=== PATIENT | female | born 1955 | race Caucasian/White ===

== ENCOUNTER 2016-12-22 10:12 | Inpatient (IN) ==
[2016-12-22] MEDS ORDERED: PERCOCET-5 PO PRN (14:02)
[2016-12-22] MEDS ORDERED: VANCOMYCIN IV PER PHARMACY MISC SCH (14:02)
[2016-12-22 14:29] LABS: MANUAL DIFF NEEDED? NO
[2016-12-22 14:31] LABS: BASO% 0.4 % (0.0-0.8); EOS# 0.02 X1000 (0.0-0.7); EOS% 0.2 % (0.0-10.0); HEMATOCRIT 43.8 % (37.0-47.0); HEMOGLOBIN 15.3 g/dL (12.0-16.0); IMM GRAN# 0.04 X1000 (0.0-0.04); IMM GRAN% 0.3 % (0.0-0.5); LYMPH# 2.55 X1000 (1.2-3.4); LYMPH% 19.8 % (20.5-51.1); MCH 30.7 PG (27-31); MCHC 34.9 g/dL (33-37); MCV 87.8 FL (81-99); MONO# 1.04 X1000 (0.11-0.59); MONO% 8.1 % (1.7-9.3); MPV 10.2 FL (7.4-10.4); NEUT% 71.2 % (42.2-75.2); PLT 350 X1000 (130-400); RBC 4.99 XMIL (4.2-5.4)
[2016-12-22 14:45] LABS: INR 0.94; PROTIME 9.8 Seconds (9.2-11.7)
[2016-12-22] MEDS: SODIUM CHLORIDE 0.9% INJ SCH (14:49)
[2016-12-22] MEDS: LOVENOX SUBQ SCH (14:49)
[2016-12-22] MEDS: PROTONIX IV SCH (14:49)
[2016-12-22] MEDS: NS 1,000 ML IV SCH (14:49)
[2016-12-22 15:00] LABS: HEMOGLOBIN A1C 13.2 % (4.8-6.0)
[2016-12-22 15:15] LABS: AGAP 11; ALBUMIN 3.5 g/dL (3.5-5.0); ALKALINE PHOSPHATASE 107 U/L (32-104); BUN 16 mg/dL (8-22); CALCIUM 9.5 mg/dL (8.8-10.2); CHLORIDE 87 mmol/L (98-107); COSMO 271; GOT 9 U/L (10-30); GPT 10 U/L (10-36); POTASSIUM 4.9 mmol/L (3.5-5.1); SODIUM 123 mmol/L (136-145); TCO2 25 mmol/L (25-35); TOTAL BILIRUBIN 0.45 mg/dL (0.20-1.00); TOTAL PROTEIN 7.3 g/dL (6.3-8.3)
[2016-12-22] MEDS: HUMALOG SUBQ SCH ×2 (15:30→20:50)
--- NOTE | 2016-12-22 15:54 | EKG Report ---
Test Performed on : 12/22/2016 2:07:03 PM Test Reason : chest pain Blood Pressure : / mmHG Vent. Rate : 083 BPM Atrial Rate : 083 BPM P-R Int : 154 ms QRS Dur : 088 ms QT Int : 378 ms P-R-T Axes : 064 056 045 degrees QTc Int : 444 ms Normal sinus rhythm. Normal ECG When compared with ECG of 07-APR-2009 12:20, No significant change was found Confirmed by Emely NEWSOME, Vinicio Worrell ([id number]) on 12/23/2016 8:19:56 AM
[2016-12-22] MEDS ORDERED: VANCOMYCIN 1,650 MG in NS 250 ML IV ONE (16:00)
--- NOTE | 2016-12-22 16:53 | Diag Imaging Result Document ---
PROCEDURE NAME: CHEST-2 VIEWS - 12/22/2016 PA AND LATERAL RADIOGRAPH OF THE CHEST: COMPARISON: 12/15/2010. FINDINGS: There is a calcified granuloma at the right lung base. There is vague increased opacity at the right lower lung zone. This is only seen on the PA view and probably represents overlying soft tissue attenuation. Mild developing infiltrate is possible. Consider followup radiograph. There is a 2nd calcified granuloma at the periphery of the right upper lung zone that is stable. The left lung appears to be clear. Cardiac silhouette and central vasculature are grossly unremarkable. IMPRESSION: Vague increased opacity at the right lower lung zone that may be artifactual due to overlying soft tissue attenuation. Developing infiltrate is possible. Consider plain radiograph followup.
[2016-12-22] MEDS ORDERED: GLUCOPHAGE PO SCH (17:00)
[2016-12-22] MEDS ORDERED: DIPRIVAN 1% ONE (17:50)
[2016-12-22] MEDS: DIABETA PO SCH (18:41)
--- NOTE | 2016-12-22 20:05 | CONSULTATION ---
DATE OF CONSULTATION: 12/22/2016 CHIEF COMPLAINT: Abscess of the right breast. HISTORY: This is a 61-year-old diabetic who for the past [id number] has had an increasing erythematous, tender fluctuant mass in the right breast. It has not spontaneously drained. She is admitted now with glucose intolerance, low-grade fever and leukocytosis. PAST MEDICAL HISTORY: Pertinent for insulin-dependent diabetes. PAST SURGICAL HISTORY: Includes cholecystectomy, removal of duct from the left breast in the past. HOME MEDICATIONS: Not listed yet. ALLERGIES: She has no known drug allergies. FAMILY HISTORY: Noncontributory. REVIEW OF SYSTEMS: As noted above. PHYSICAL EXAMINATION: Vital Signs: Temperature is 99.1 degrees, heart rate 84, respiratory rate 18, blood pressure 143/71. General: She has no cervical adenopathy. Lungs: Bilateral breath sounds. Heart: Regular rate and rhythm. Skin: She has a very large erythematous fluctuant mass in the right breast at 2 o'clock, exquisitely tender. She also has an ulceration on her left hand from a cat scratch. Neurologic: She is awake, alert and oriented. DIAGNOSTICS/LABS: White count is 12,900. ASSESSMENT: Right breast abscess. PLAN: Irrigation and debridement of right breast abscess. We will plan to proceed due to the acuity of it. cc: MD Sumeet Bahena MD
--- NOTE | 2016-12-22 21:19 | HISTORY AND PHYSICAL ---
CHIEF COMPLAINT: Pain and swelling right breast for the last 10 days. Uncontrolled sugar. Noncompliance. Was not seen here for more than 1 year. A1c 10. Upon examination, there is a large right breast abscess above the nipple, mostly in the superior area and fluctuations noted with underlying induration. Last mammography 2013. It is exquisitely tender. Almost dizzy and passing out. As a result, she has been hospitalized for IV antibiotics and incision and drainage. The patient was seen before by Dr. Jarrett. As a result, a hospital admission was warranted. White cell count 12,000. PAST MEDICAL HISTORY: Atypical chest pain. Stress test was negative in 2007. Depression with anxiety. Poorly-controlled diabetes. Hypothyroidism. Sleep apnea. Simple goiter. Spondylosis C-spine. History of Graves disease status post thyroidectomy in 1985. PAST SURGICAL HISTORY: Thyroid surgery. Left breast lumpectomy. Cholecystectomy. MEDICATIONS: Celexa 40 daily, Synthroid 50 daily. Lisinopril 2.5 mg daily. Lovastatin 40 mg daily. Metformin 1000 p.o. b.i.d. Mobic 15 daily. ALLERGIES: Not known. SOCIAL HISTORY: . Disabled. No drugs. No alcohol. No smoking. FAMILY HISTORY: Father of [place] at 60. Mom of colon and rectal cancer at the age of 60. HEALTH MAINTENANCE: Tetanus 2015. Mammography December 2013. DEXA scan December 2013. Pap smear 2008. Colonoscopy 2010. REVIEW OF SYSTEMS: HEENT: Vision problems. No headache. No earache. No sore throat. Neck: No goiter. No lymphadenopathy. No bruit. Status post thyroidectomy. Cardiopulmonary: No chest pain, shortness of breath, PND, orthopnea. GI: No nausea, vomiting, abdominal pain. : History of polyuria. Breasts: Right breast abscess. Extremities: No swelling of feet. No joint pains. No back pain. Neurologic: No obvious focal symptoms or weakness. PHYSICAL EXAMINATION: VITAL SIGNS: Stable. 5 feet 2, 162 pounds. HEENT: Atraumatic, normocephalic. Pupils equal, react to light. TMs are normal. Nose and throat within normal limits. NECK: Supple. No lymphadenopathy. No goiter. CHEST: Bilateral air entry. HEART: Sounds are regular. RIGHT BREAST: Large abscess above the nipple from 2:00 o'clock to 10:00 o' clock area. No lymphadenopathy. ABDOMEN: Belly is soft, nontender. Good bowel sounds. EXTREMITIES: No peripheral edema, cyanosis, clubbing. NEUROLOGIC: No obvious neurological deficits. INVESTIGATIONS: CBC: White cell count 12, hematocrit 43, platelets 350,000. PT/INR is normal. SMA7: Sodium 123, potassium 4.9, glucose 487. A1c 13.2. LFTs were normal. B12 is normal. TSH is normal. Chest x-ray, calcified granulomatosis disease. EKG: Normal sinus, nothing acute. ASSESSMENT AND PLAN: 1. A 61-year-old white female, noncompliant. Uncontrolled diabetes associated with pseudo-hyponatremia with elevated blood sugar complicated by a right breast abscess. Plan is IV vancomycin. 2. Surgical consult with Dr. Jarrett. 3. Uncontrolled diabetes. The patient has been on DiaBeta, metformin. Optimize the treatment and a get C-peptide levels in the morning. 4. Hyponatremia. IV fluids and follow up on sliding scale with insulin coverage. 5. Deep venous thrombosis prophylaxis with Lovenox. 6. Gastrointestinal prophylaxis with IV Protonix. 7. Reconcile home medications and will follow up and discuss with Dr. Jarrett on the telephone. cc: Sumeet Pennington MD MTDD
--- NOTE | 2016-12-22 22:29 | OPERATIVE NOTE ---
PROCEDURE DATE: 12/22/2016 PROCEDURE PERFORMED: Incision and drainage right breast abscess. SURGEON: Chilo Jarrett MD. HOME THEATER INSTALLER: Fatou. PREOPERATIVE DIAGNOSIS: Right breast abscess. POSTOPERATIVE DIAGNOSIS: Right breast abscess. DESCRIPTION OF PROCEDURE: Satisfactory general anesthesia was achieved. An LMA was used. The right breast was prepped and draped in a sterile fashion. We made a radial incision at 2 o'clock at the edge of the areola into the pointing abscess. Significant amount of pus flowed forth. We cultured the wound. We then suctioned out the abscess cavity. We digitally explored it to be sure there were no loculations and after doing so, we then copiously irrigated it. After irrigating and hemostasis was satisfactory, we packed it with a quarter-inch iodoform gallstone and sterile gauze dressing was applied. She tolerated it well, was sent to the recovery room in satisfactory condition. cc: MD Sumeet Bahena MD
[2016-12-23 06:15] LABS: MANUAL DIFF NEEDED? NO
[2016-12-23 06:19] LABS: BASO% 0.3 % (0.0-0.8); EOS# 0.09 X1000 (0.0-0.7); EOS% 0.8 % (0.0-10.0); HEMATOCRIT 41.5 % (37.0-47.0); HEMOGLOBIN 14.1 g/dL (12.0-16.0); IMM GRAN# 0.02 X1000 (0.0-0.04); IMM GRAN% 0.2 % (0.0-0.5); LYMPH# 2.93 X1000 (1.2-3.4); LYMPH% 25.6 % (20.5-51.1); MCH 30.5 PG (27-31); MCV 89.6 FL (81-99); MONO# 0.86 X1000 (0.11-0.59); MONO% 7.5 % (1.7-9.3); MPV 10.3 FL (7.4-10.4); NEUT% 65.6 % (42.2-75.2); PLT 343 X1000 (130-400); RBC 4.63 XMIL (4.2-5.4)
[2016-12-23] MEDS: NS 1,000 ML IV SCH ×2 (06:22→18:57)
[2016-12-23] MEDS: SYNTHROID PO SCH (06:22)
[2016-12-23] MEDS: HUMALOG SUBQ SCH ×4 (06:22→21:09)
[2016-12-23 06:47] LABS: AGAP 13; BUN 16 mg/dL (8-22); CALCIUM 8.9 mg/dL (8.8-10.2); CHLORIDE 99 mmol/L (98-107); COSMO 277; HDL 25 mg/dL (45-65); LDL 116 mg/dL; POTASSIUM 4.3 mmol/L (3.5-5.1); SODIUM 135 mmol/L (136-145); TCO2 23 mmol/L (25-35); TRIGLYCERIDES 215 mg/dL (35-135); VLDL 43 mg/dL
[2016-12-23] MEDS: MEVACOR PO SCH (08:30)
[2016-12-23] MEDS: CELEXA PO SCH (08:31)
[2016-12-23] MEDS: VITAMIN D PO SCH (08:31)
[2016-12-23] MEDS: GLUCOPHAGE PO SCH ×3 (08:31→16:17)
[2016-12-23] MEDS: THERA M PLUS PO SCH (08:32)
[2016-12-23] MEDS: DIABETA PO SCH ×2 (08:32→16:17)
[2016-12-23] MEDS: PRINIVIL PO SCH (08:33)
[2016-12-23] MEDS ORDERED: ZOFRAN ONE (09:38)
[2016-12-23] MEDS ORDERED: LR 1,000 ML ONE (09:38)
[2016-12-23] MEDS ORDERED: EXTENSION SET 32 IN 4522 ONE (09:38)
[2016-12-23] MEDS ORDERED: XYLOCAINE-MPF 2% ONE (09:38)
[2016-12-23] MEDS ORDERED: ROBINUL ONE (09:38)
[2016-12-23] MEDS ORDERED: ANESTHESIA PB SET 88 IN 5742 ONE (09:38)
--- NOTE | 2016-12-23 10:36 | PROGRESS NOTE ---
DATE: 12/23/2016 SUBJECTIVE: Interval history was reviewed for the last 24 hours. The patient was seen by Dr. Jarrett. He did incision and drainage. Operative findings were noted. Cultures are pending. REVIEW OF SYSTEMS: None reported. PHYSICAL EXAMINATION: Vital Signs: Stable, afebrile. HEENT: Within normal limits. Neck: Supple. No lymphadenopathy. Breast: Wound was dressed with iodoform gauze and sterile pack. Abdomen: Belly is soft, nontender. Extremities: No peripheral edema, cyanosis, clubbing. Neurologic: Nonfocal. INVESTIGATIONS: CBC: White cell count 11.46, hematocrit 41, platelets 343,000. SMA-7: Sodium 135, potassium 4.3, blood sugar is 208. A1c 13.2. C-peptide is 5.5. Triglycerides 215, cholesterol 184, HDL 25. B12 and TSH are normal. ASSESSMENT AND PLAN: 1. Right breast abscess, status post incision and drainage. Follow up on microbiology culture. Continue on IV vancomycin. 2. Uncontrolled diabetes due to noncompliance. A1c 13.4. C-peptide is high. Increase the metformin to 850 p.o. b.i.d., along with vitamin B12 tablets and glyburide 2.5 p.o. b.i.d. 3. Deep vein thrombosis and gastrointestinal prophylaxis, respectively. 4. Hypertension, on lisinopril. 5. Hyperlipidemia. We will start on Lipitor 40 mg once daily. Discussed at length with the patient about diabetes and complications. LEVEL OF DOCUMENTATION: Thirty-five minutes. cc: Sumeet Pennington MD
[2016-12-23] MEDS: SODIUM CHLORIDE 0.9% INJ SCH ×2 (13:00→13:03)
[2016-12-23] MEDS: LOVENOX SUBQ SCH (13:03)
[2016-12-23] MEDS: PROTONIX IV SCH (13:03)
[2016-12-23] MEDS: VANCOMYCIN 1,250 MG in NS 250 ML IV SCH (21:08)
[2016-12-24] MEDS: NS 1,000 ML IV SCH ×3 (03:46→20:46)
[2016-12-24] MEDS: SYNTHROID PO SCH (06:12)
[2016-12-24] MEDS: HUMALOG SUBQ SCH ×4 (06:12→20:46)
[2016-12-24] MEDS: VITAMIN D PO SCH ×2 (07:51→12:24)
[2016-12-24] MEDS: PRINIVIL PO SCH ×2 (07:51→12:25)
[2016-12-24] MEDS: THERA M PLUS PO SCH ×2 (07:52→12:24)
[2016-12-24] MEDS: GLUCOPHAGE PO SCH ×3 (07:52→16:40)
[2016-12-24] MEDS: CELEXA PO SCH ×2 (07:52→12:24)
[2016-12-24] MEDS: MEVACOR PO SCH ×2 (07:53→12:24)
[2016-12-24] MEDS: DIABETA PO SCH ×2 (07:53→16:40)
--- NOTE | 2016-12-24 12:05 | PROGRESS NOTE ---
DATE: 12/24/2016 SUBJECTIVE: Discussed with Dr. Jarrett. Drained quite a bit of pus in the right breast. Wound was dressed yesterday. The patient is doing very well. Blood sugars running high. cultures showed gram-positive cocci. REVIEW OF SYSTEMS: None reported. OBJECTIVE: Vital Signs: On physical examination, afebrile. Hemodynamics are stable. Oxygen 98% on room air. HEENT: Exam within normal limits. Chest: Clear. Some minimal oozing coming out from the dressing. Heart: Sounds are regular. Abdomen: Belly is soft, nontender. Good bowel sounds. Extremities: No peripheral edema, cyanosis, clubbing. Nonfocal exam. ROUTINE CULTURES: Gram-positive cocci. ASSESSMENT AND PLAN: 1. Right breast abscess status post incision and drainage, consistent with gram- positive cocci. Continue on intravenous vancomycin. 2. Uncontrolled diabetes. Explained the blood glucose monitoring. Continue on glimepiride and metformin. 3. Hyponatremia, improving after intravenous fluids. 4. Hyperlipidemia. Mevacor 40 mg daily. LEVEL OF DOCUMENTATION: 25 minutes. Will continue present medical therapy. cc: Sumeet Pennington MD MTD
[2016-12-24] MEDS: SODIUM CHLORIDE 0.9% INJ SCH (14:24)
[2016-12-24] MEDS: PROTONIX IV SCH (14:24)
[2016-12-24] MEDS: LOVENOX SUBQ SCH (14:25)
[2016-12-24] MEDS: VANCOMYCIN 1,250 MG in NS 250 ML IV SCH (20:46)
[2016-12-25] MEDS: SYNTHROID PO SCH (06:56)
[2016-12-25] MEDS: HUMALOG SUBQ SCH ×4 (06:56→21:36)
[2016-12-25] MEDS: VITAMIN D PO SCH (08:19)
[2016-12-25] MEDS: THERA M PLUS PO SCH (08:19)
[2016-12-25] MEDS: GLUCOPHAGE PO SCH ×3 (08:19→17:08)
[2016-12-25] MEDS: MEVACOR PO SCH (08:20)
[2016-12-25] MEDS: PRINIVIL PO SCH (08:20)
[2016-12-25] MEDS: DIABETA PO SCH ×2 (08:21→17:08)
[2016-12-25] MEDS: CELEXA PO SCH (09:00)
[2016-12-25] MEDS: NS 1,000 ML IV SCH ×2 (12:18→18:28)
[2016-12-25] MEDS: SODIUM CHLORIDE 0.9% INJ SCH ×2 (12:31→13:34)
[2016-12-25] MEDS: LOVENOX SUBQ SCH (13:33)
[2016-12-25] MEDS: PROTONIX IV SCH (13:34)
--- NOTE | 2016-12-25 13:42 | PROGRESS NOTE ---
DATE: 12/25/2016 SUBJECTIVE: The patient does not offer any complaints. Right breast wound is dressed, still quite a bit of drainage with a large induration noted. Blood sugars are running around 200. REVIEW OF SYSTEMS: None reported. PHYSICAL EXAMINATION: Vital signs: Stable. HEENT: Within normal limits. Neck: Supple, no lymphadenopathy. Chest: Clear. Heart: Heart sounds are regular. Breasts: Right breast was dressed. Abdomen: Belly is soft, nontender. Extremities: No peripheral edema, cyanosis or clubbing. LABORATORY DATA: CBC: White cell count 11. hematocrit 42, platelets 343. SMA-7: Sodium 135, potassium 4.3, sugar is around 200. Microbiology cultures: Staphylococcus lugdunensis sensitive to Bactrim and vancomycin. ASSESSMENT AND PLAN: 1. Uncontrolled diabetes. Continue on metformin t.i.d. and glyburide, will increase to 5 mg p.o. b.i.d. Follow up on sliding scale. 2. Right breast abscess due to Staphylococcus. Continue IV Levaquin. Will change to the Bactrim when she goes home. 3. Education was given per her diabetic classes and home blood glucose monitoring. Continue present medical therapy. LEVEL OF DOCUMENTATION: 35 minutes. cc: Sumeet Pennington MD
[2016-12-25] MEDS: VANCOMYCIN 1,250 MG in NS 250 ML IV SCH (21:05)
[2016-12-26] MEDS: HUMALOG SUBQ SCH ×4 (06:45→21:25)
[2016-12-26] MEDS: NS 1,000 ML IV SCH ×3 (06:47→21:09)
[2016-12-26] MEDS: SYNTHROID PO SCH (06:48)
[2016-12-26] MEDS: VITAMIN D PO SCH (08:39)
[2016-12-26] MEDS: PRINIVIL PO SCH (08:39)
[2016-12-26] MEDS: CELEXA PO SCH (08:39)
[2016-12-26] MEDS: THERA M PLUS PO SCH (08:41)
[2016-12-26] MEDS: MEVACOR PO SCH (08:41)
[2016-12-26] MEDS: DIABETA PO SCH ×2 (08:41→16:52)
[2016-12-26] MEDS: GLUCOPHAGE PO SCH ×3 (08:41→17:32)
--- NOTE | 2016-12-26 09:17 | PROGRESS NOTE ---
DATE: 12/25/2016 SUBJECTIVE: The patient complains of some pain in her right breast but says it is improving. OBJECTIVE: Vital Signs: She is afebrile. Vital signs are stable. General: She is alert and oriented x4. No acute distress. Right Breast Examination: Shows continued induration, erythema, and some seropurulent drainage from her wound in the right medial breast. Laboratory: None today. ASSESSMENT AND PLAN: A 61-year-old female, status post incision and drainage of right breast abscess. She would benefit from continued intravenous antibiotics and wound care. cc: MD Sumeet Bray MD
--- NOTE | 2016-12-26 10:23 | PROGRESS NOTE ---
DATE: 12/26/2016 SUBJECTIVE: The patient seems like she is feeling better. OBJECTIVE: Vital Signs: She is afebrile. Vital signs are stable. Breast Examination: Her right breast has some induration, erythema, and seropurulent drainage but no fluctuance or undrained pockets of fluid. Laboratory Data: There are no new labs today. ASSESSMENT AND PLAN: A 61-year-old female with right breast abscess, status post incision and drainage. She will continue on intravenous antibiotics until the inflammation improves. cc: MD Sumeet Bray MD
[2016-12-26] MEDS: SODIUM CHLORIDE 0.9% INJ SCH (14:20)
[2016-12-26] MEDS: PROTONIX IV SCH (14:20)
[2016-12-26] MEDS: LOVENOX SUBQ SCH (14:21)
--- NOTE | 2016-12-26 15:11 | PROGRESS NOTE ---
DATE: 12/26/2016 SUBJECTIVE: Still draining in the right breast. A lot of induration. Patient wants to go home. Blood sugars are running 200. Patient is noncompliant. REVIEW OF SYSTEMS: None reported. PHYSICAL EXAMINATION: Vital Signs: Stable. HEENT: Within normal limits. Neck: Supple. Chest: Clear to auscultation. Heart: Sounds are regular. Blood sugar is slowly coming down. INVESTIGATIONS: Blood culture: Staph infection. ASSESSMENT AND PLAN: Right breast abscess. Continue local wound care, intravenous vancomycin. We will be change to Bactrim. Diabetes, continue on metformin and glyburide 5 mg p.o. b.i.d. Discussed with the family plan of care. She will be discharged in the morning. LEVEL OF DOCUMENTATION: 15 minutes. cc: Sumeet Pennington MD
[2016-12-26] MEDS: VANCOMYCIN 1,500 MG in NS 250 ML IV SCH (21:06)
[2016-12-27] MEDS: SYNTHROID PO SCH (06:09)
[2016-12-27] MEDS: HUMALOG SUBQ SCH ×4 (06:09→20:54)
--- NOTE | 2016-12-27 08:48 | PROGRESS NOTE ---
DATE: 12/27/2016 SUBJECTIVE: The patient wants to go home. OBJECTIVE: Right breast with minimal redness. Vital signs are stable. HEENT: Within normal limits. Neck: Supple. Right breast: A lot of induration and a knot just below the nipple starting at 9 o'clock to 1 o'clock. Nontender. No lymphadenopathy. The rest of the exam is benign. REVIEW OF SYSTEMS: None reported. DIAGNOSTIC DATA: None. ASSESSMENT AND PLAN: 1. Right breast abscess, status post incision and drainage. Continues to have a large indurated know, etiology to be determined. Rule out mass. We will get mammography. Last mammography was 3 years ago. Based on the mammogram, further recommendations will follow. 2. Type 2 diabetes. On metformin 850 t.i.d. along with glyburide. 3. Continue on IV vancomycin and will follow up. cc: Sumeet Pennington MD
[2016-12-27] MEDS: GLUCOPHAGE PO SCH ×3 (08:54→17:19)
[2016-12-27] MEDS: PRINIVIL PO SCH (08:54)
[2016-12-27] MEDS: CELEXA PO SCH (08:55)
[2016-12-27] MEDS: DIABETA PO SCH ×2 (08:55→17:19)
[2016-12-27] MEDS: MEVACOR PO SCH (08:55)
[2016-12-27] MEDS: THERA M PLUS PO SCH (08:55)
[2016-12-27] MEDS: VITAMIN D PO SCH (08:55)
[2016-12-27] MEDS: LOVENOX SUBQ SCH (13:37)
[2016-12-27] MEDS: SODIUM CHLORIDE 0.9% INJ SCH (13:38)
[2016-12-27] MEDS: PROTONIX IV SCH (13:38)
[2016-12-27] MEDS: NS 1,000 ML IV SCH (13:40)
[2016-12-27] MEDS: VANCOMYCIN 1,500 MG in NS 250 ML IV SCH (20:54)
[2016-12-28] MEDS: NS 1,000 ML IV SCH ×2 (05:38→05:49)
[2016-12-28 07:28] VITALS: BP 144/75
[2016-12-28] MEDS: HUMALOG SUBQ SCH (08:04)
[2016-12-28] MEDS: SYNTHROID PO SCH (08:04)
[2016-12-28] MEDS: VITAMIN D PO SCH (08:36)
[2016-12-28] MEDS: PRINIVIL PO SCH (08:36)
[2016-12-28] MEDS: THERA M PLUS PO SCH (08:36)
[2016-12-28] MEDS: MEVACOR PO SCH (08:38)
[2016-12-28] MEDS: GLUCOPHAGE PO SCH (08:38)
[2016-12-28] MEDS: CELEXA PO SCH (08:38)
[2016-12-28] MEDS: DIABETA PO SCH (08:38)
--- NOTE | 2016-12-30 13:41 | DISCHARGE SUMMARY ---
ADMISSION DATE: 12/22/2016 DISCHARGE DATE: 12/28/2016 DISCHARGING DIAGNOSIS: Right breast abscess due to Staphylococcus lugdunensis. SECONDARY DIAGNOSES: 1. Uncontrolled diabetes due to noncompliance. 2. Hypothyroidism. 3. Sleep apnea. 4. Simple goiter. 5. Spondylosis of cervical spine. 6. Depression with anxiety. 7. Hyperlipidemia. CONSULTS: Dr. Jarrett. PROCEDURES: Incision and drainage. BRIEF HISTORY AND HOSPITAL COURSE: 1. Please see the H and P that was done on 12/22/2016. In brief, she is a 61-year-old, white female, noncompliant. Came in my office with right breast swelling and redness. She has a large fluctuation, abscess. Very tender. The patient has slightly elevated white cell count. Last mammography 3 years ago. The patient was admitted to the hospital with IV vancomycin and surgical consult. Dr. Jarrett did incision and drainage. Drained copious amount of pus. The cultures grew Staphylococcus lugdunensis, sensitive to Bactrim. She still has a lot of induration and Dr. Jarrett wants to continue antibiotics and re-evaluate in 1 month. Rest of the hospital course was uneventful. 2. Diabetes is poorly controlled due to noncompliance. Increase her metformin along with the glipizide. Her blood sugar is running around 150-200. LABORATORIES: CBC: White cell count 11, hematocrit 41, platelets 343,000. PT 9.8, INR 0.94. SMA 7: Sodium 135, potassium 4.3, chloride 99, BUN 16, creatinine 0.8, glucose 205, A1c 13.2, calcium 8.9. Triglycerides 215, cholesterol 184, HDL 25. B12 is normal. Thyroid function test was normal. Wound culture from the right breast, Staphylococcus lugdunensis. No anaerobes noted. DISCHARGE INSTRUCTIONS: Vitamin D3 2000 international units daily, lovastatin 40 daily, Synthroid 50 daily, lisinopril 2.5 daily, Celexa 40 daily, multivitamin 1 tablet daily, metformin 850 p.o. t.i.d., Bactrim 1 tablet p.o. b.i.d. for 2 weeks, glyburide 5 mg p.o. b.i.d. Follow up on blood sugars. Follow up in my office in 10 days as well as with Dr. Jarrett. Continue the local wound care on the right breast. She needs an A1c and lipid panel recheck in 3 months. cc: MD Dr. Kolby Britt
== END 2016-12-28 09:22 | disposition home or self-care (01) ==
LOC: DIRADM 10:12 → OBSVTOIN 10:12 → INTOOBSV 10:12 → 4N 13:53
PROVIDERS: ADMIT Internal Medicine; ATTEND Internal Medicine